=== PATIENT | male | born 1975 | race Two or more races ===

== ENCOUNTER 2017-01-26 10:27 | Emergency (ER) | payer BC ==
[~2017-01-26] VITALS: Ht 193 cm; Wt 122.5 kg
[2017-01-26 11:57] LABS: Basophils # (auto) 0 uL; Basophils % (auto) 0.4 % (0.0-2.0); CONDITION Y; DEFINITIVE SEE PRINTOUT; Eosinophils # (auto) 0.1 uL; Hemoglobin 15.6 g/dL (13.5-17.5); Lymphocytes # (auto) 1.7 uL; Lymphocytes % (auto) 24.8 % (10.0-50.0); Mean Corpuscular Hemoglobin 34.1 pg (28.0-32.0); Mean Corpuscular Hgb Conc. 33.3 g/dL (32.0-36.0); Mean Corpuscular Volume 102.5 fL (80.0-100.0); Mean Platelet Volume 9.9 fL (7.4-10.4); Monocytes # (auto) 0.7 uL; Monocytes % (auto) 9.5 % (0.0-12.0); Neutrophils # (auto) 4.4 uL; Neutrophils % (auto) 64.3 % (37.0-80.0); Platelet Count (auto) 302 10^3/uL (140-450); Red Cell Distribution Width 13.9 % (11.6-16.0); SUSPECT SEE PRINTOUT; White Blood Cell 6.9 10^3/uL (4.4-10.8)
[2017-01-26 12:13] LABS: INR 1.18 (0.9-1.15); Partial Thromboplastin Time 26.8 sec (22.64-33.71); Prothrombin Time 12.9 sec (9.37-12.3)
[2017-01-26 12:22] LABS: Albumin 3.9 g/dL (3.4-5.0); BUN/Creatinine Ratio 9.5; Bilirubin, Total 1.7 mg/dL (0.2-1.0); Calcium 9.1 mg/dL (8.5-10.1); Potassium 4.3 mmol/L (3.5-5.1); Total Protein 7.1 g/dL (6.4-8.2)
[2017-01-26] MEDS ORDERED: SODIUM CHLORIDE 0.9% 1,000 ML IV ONE (12:24)
[2017-01-26] MEDS ORDERED: LORazepam 2MG/ML-1ML VIAL IV ONE (12:30)
[2017-01-26] MEDS ORDERED: cloNIDine HCL 0.1 MG TAB PO ONE (12:30)
[2017-01-26 13:39] LABS: Urine RBC None Seen /hpf (0 - 3)
[2017-01-26 13:59] VITALS: BP 130/96
[2017-01-26 14:03] LABS: Urine Bilirubin Negative (Negative); Urine Blood Negative /uL (Negative); Urine Color Yellow (Yellow); Urine Glucose Normal (Normal); Urine Hyaline Cast FEW /lpf (0 - 2); Urine Ketone Negative (Negative); Urine Mucus FEW (None Seen); Urine Nitrite Negative (Negative); Urine pH 5.5 (5.0-8.0)
== END 2017-01-26 15:33 | disposition home or self-care (01) ==
LOC: ER 10:27
DX: R18.8 Other ascites (principal); I10 Essential (primary) hypertension; F17.210 Nicotine dependence, cigarettes, uncomplicated; R42 Dizziness and giddiness; K59.00 Constipation, unspecified
CPT/HCPCS: 36415; 70450; 74176; 80053; 81001; 83690; 84443; 85025; 85610; 85730; 96361; 96374; 99285; J2060; J7030

== ENCOUNTER 2017-01-30 13:23 | Inpatient (IN) | payer BC ==
[~2017-01-30] VITALS: Ht 193 cm; Wt 122.9 kg
[2017-01-30 14:19] LABS: Basophils # (auto) 0 uL; Basophils % (auto) 0.8 % (0.0-2.0); Eosinophils # (auto) 0.1 uL; Eosinophils % (auto) 1.1 % (0.0-7.0); Hematocrit 48.7 % (41.0-53.0); Hemoglobin 16.3 g/dL (13.5-17.5); Lymphocytes # (auto) 1.6 uL; Lymphocytes % (auto) 26.1 % (10.0-50.0); Mean Corpuscular Hemoglobin 34.7 pg (28.0-32.0); Mean Corpuscular Hgb Conc. 33.4 g/dL (32.0-36.0); Mean Corpuscular Volume 103.8 fL (80.0-100.0); Mean Platelet Volume 9.5 fL (7.4-10.4); Monocytes # (auto) 0.6 uL; Neutrophils # (auto) 3.9 uL; Nucleated Red Blood Cells % 0.1 %; Platelet Count (auto) 247 10^3/uL (140-450); Red Cell Distribution Width 13.6 % (11.6-16.0); White Blood Cell 6.3 10^3/uL (4.4-10.8)
[2017-01-30 14:35] LABS: Albumin 3.8 g/dL (3.4-5.0); BUN/Creatinine Ratio 9.3; Calcium 8.8 mg/dL (8.5-10.1); Magnesium 2.2 mg/dL (1.6-2.6); Potassium 4.2 mmol/L (3.5-5.1)
[2017-01-30 14:40] LABS: Bilirubin, Total 1.8 mg/dL (0.2-1.0); Total Protein 7.1 g/dL (6.4-8.2)
[2017-01-30 16:05] LABS: Urine RBC None Seen /hpf (0 - 3)
[2017-01-30 16:23] LABS: Urine Bilirubin Negative (Negative); Urine Blood Negative /uL (Negative); Urine Color Yellow (Yellow); Urine Glucose Normal (Normal); Urine Hyaline Cast MOD /lpf (0 - 2); Urine Ketone Negative (Negative); Urine Mucus FEW (None Seen); Urine Nitrite Negative (Negative); Urine Squamous Epithelial Cell FEW /hpf (<5); Urine Urobilinogen Normal (Negative); Urine pH 5.5 (5.0-8.0)
[2017-01-30 16:50] LABS: B-Type Natriuretic Peptide 1230.38 pg/mL (0-100)
[2017-01-30 16:58] LABS: Temperature: 23.3 C (20.0-25.0)
[2017-01-30] MEDS ORDERED: PANTOPRAZOLE 40 MG TAB PO ONE (18:45)
[2017-01-30] MEDS ORDERED: ENALAPRIL MALEATE 2.5 MG TAB PO ONE (18:45)
[2017-01-30] MEDS ORDERED: MORPHINE SULFATE 4 MG/ML SYRG IV PRN (18:45)
[2017-01-30] MEDS ORDERED: LACTULOSE 20Gm/30ML SOLN PO PRN (18:45)
[2017-01-30] MEDS ORDERED: ACETAMINOPHEN 500 MG TAB PO PRN (18:45)
[2017-01-30] MEDS ORDERED: POTASSIUM CHL 20 Meq TABLET PO ONE (18:45)
[2017-01-30] MEDS ORDERED: LORazepam 0.5 MG TAB PO PRN (18:45)
[2017-01-30] MEDS ORDERED: chlordiazePOXIDE HCL 25 MG CAP PO PRN (18:45)
[2017-01-30] MEDS ORDERED: TEMAZEPAM 15 MG CAP PO PRN (18:45)
[2017-01-30] MEDS ORDERED: PROMETHAZINE HCL 25 MG/ML 1ML IV PRN (18:45)
[2017-01-30] MEDS ORDERED: FUROSEMIDE 40 MG/4 ML VIAL IV ONE (18:45)
[2017-01-30] MEDS ORDERED: MORPHINE SULF INJ 2 MG/ML SYRINGE 1ML IV PRN (18:45)
[2017-01-30] MEDS ORDERED: ASPirin 81 mg TAB PO ONE (18:45)
[2017-01-30] MEDS ORDERED: NITROGLYCERIN 0.4 MG SL TAB SL PRN (18:45)
[2017-01-30] MEDS ORDERED: THIAMINE HCL 100 MG/ML 2ML VIAL IV ONE (18:45)
[2017-01-30] MEDS ORDERED: HYDROcodone-ACET 5/325MG TAB PO PRN (18:45)
[2017-01-30] MEDS: FUROSEMIDE 40 MG/4 ML VIAL IV SCH (19:10)
[2017-01-30] MEDS: CARVEDILOL 3.125 MG TAB PO SCH ×2 (19:11→22:22)
[2017-01-30] MEDS: ENOXAPARIN SOD 120 MG/0.8 ML SYRINGE SC SCH (19:13)
[2017-01-30 19:29] LABS: INR 1.17 (0.9-1.15); Prothrombin Time 12.8 sec (9.37-12.3)
[2017-01-30 20:05] VITALS: BP 121/76
[2017-01-30 22:00] VITALS: BP 121/76
[2017-01-30] MEDS: ATORVASTATIN 20 MG TAB PO SCH (22:22)
[2017-01-30] MEDS: chlordiazePOXIDE HCL 5 MG CAP PO SCH (23:42)
[2017-01-31] VITALS (14 sets, daily range): BP systolic 48–133; BP diastolic 31–92
[2017-01-31] MEDS: chlordiazePOXIDE HCL 5 MG CAP PO SCH ×3 (05:42→22:29)
[2017-01-31] MEDS: ENOXAPARIN SOD 120 MG/0.8 ML SYRINGE SC SCH ×2 (05:43→18:18)
[2017-01-31 05:51] LABS: Cholesterol 106 mg/dL (< 200); HDL Cholesterol 18 mg/dL (40-59); LDL Cholesterol 81 mg/dL (< 100); Triglycerides 100 mg/dL (< 150)
[2017-01-31 06:18] LABS: Temperature: 21.8 C (20.0-25.0)
[2017-01-31 09:01] LABS: INR 1.17 (0.9-1.15); Partial Thromboplastin Time 34.3 sec (22.64-33.71); Prothrombin Time 12.8 sec (9.37-12.3)
[2017-01-31] MEDS: FUROSEMIDE 40 MG/4 ML VIAL IV SCH (10:30)
[2017-01-31] MEDS: THIAMINE HCL 100 MG/ML 2ML VIAL IV SCH (10:30)
[2017-01-31] MEDS: ASPirin 81 mg TAB PO SCH (10:30)
[2017-01-31] MEDS: CARVEDILOL 3.125 MG TAB PO SCH ×2 (10:31→22:28)
[2017-01-31] MEDS: POTASSIUM CHL 20 Meq TABLET PO SCH (10:31)
[2017-01-31] MEDS: PANTOPRAZOLE 40 MG TAB PO SCH (10:32)
[2017-01-31] MEDS: ENALAPRIL MALEATE 2.5 MG TAB PO SCH (10:32)
[2017-01-31] MEDS ORDERED: AMIODARONE HCL 900 MG in DEXTROSE 500 ML IV SCH ×2 (15:28→21:28)
[2017-01-31] MEDS ORDERED: AMIODARONE HCL 150 MG in D5W 5% 100 ML IV ONE (15:30)
[2017-01-31] MEDS ORDERED: WARFARIN SODIUM 2.5 MG TAB PO ONE (17:00)
[2017-01-31] MEDS ORDERED: DOPamine 1600MCG/ML 0 ML IV ONE (19:53)
[2017-01-31] MEDS ORDERED: DOPamine 1600MCG/ML 250 ML IV ONE (20:04)
[2017-01-31] MEDS: DOPamine 1600MCG/ML 250 ML IV SCH (20:30)
[2017-01-31] MEDS: ATORVASTATIN 20 MG TAB PO SCH (22:29)
[2017-02-01] VITALS: BP 109/76
[2017-02-01] MEDS ORDERED: SODIUM CHLORIDE 0.9% 500 ML IV ONE (02:15)
[2017-02-01 04:00] VITALS: BP 126/65
[2017-02-01] MEDS: DOPamine 1600MCG/ML 250 ML IV SCH (04:55)
[2017-02-01 05:33] LABS: INR 1.25 (0.9-1.15); Partial Thromboplastin Time 35.7 sec (22.64-33.71); Prothrombin Time 13.7 sec (9.37-12.3)
[2017-02-01] MEDS: ENOXAPARIN SOD 120 MG/0.8 ML SYRINGE SC SCH ×2 (06:00→19:13)
[2017-02-01] MEDS: chlordiazePOXIDE HCL 5 MG CAP PO SCH ×4 (06:00→19:13)
[2017-02-01] MEDS: POTASSIUM CHL 20 Meq TABLET PO SCH (10:00)
[2017-02-01] MEDS: PANTOPRAZOLE 40 MG TAB PO SCH (10:00)
[2017-02-01] MEDS: ASPirin 81 mg TAB PO SCH (10:00)
[2017-02-01] MEDS: ENALAPRIL MALEATE 2.5 MG TAB PO SCH (10:00)
[2017-02-01] MEDS ORDERED: AMIODARONE HCL 200 MG TAB PO SCH (10:00)
[2017-02-01] MEDS: CARVEDILOL 3.125 MG TAB PO SCH ×2 (10:00→21:28)
[2017-02-01 11:33] LABS: Albumin 3.5 g/dL (3.4-5.0); BUN/Creatinine Ratio 13.4; Bilirubin, Total 1.6 mg/dL (0.2-1.0); Calcium 8.7 mg/dL (8.5-10.1); Magnesium 2.5 mg/dL (1.6-2.6); Potassium 4.8 mmol/L (3.5-5.1); Total Protein 6.5 g/dL (6.4-8.2)
[2017-02-01 12:00] VITALS: BP 118/86
[2017-02-01] MEDS: FUROSEMIDE 40 MG TAB PO SCH (12:15)
[2017-02-01] MEDS: THIAMINE HCL 100 MG/ML 2ML VIAL IV SCH (13:00)
[2017-02-01 16:00] VITALS: BP 133/84
[2017-02-01] MEDS ORDERED: WARFARIN SODIUM 5 MG TAB PO ONE (17:00)
[2017-02-01 20:01] VITALS: BP 146/84
[2017-02-01] MEDS: DIGOXIN 0.125 MG TAB PO SCH (21:28)
[2017-02-01] MEDS: ATORVASTATIN 20 MG TAB PO SCH (21:29)
[2017-02-02] VITALS: BP 141/88
[2017-02-02 04:00] VITALS: BP 143/85
[2017-02-02 05:13] LABS: Basophils # (auto) 0 uL; Basophils % (auto) 0.7 % (0.0-2.0); Eosinophils # (auto) 0.1 uL; Eosinophils % (auto) 1.5 % (0.0-7.0); Hematocrit 44.9 % (41.0-53.0); Hemoglobin 14.9 g/dL (13.5-17.5); Lymphocytes # (auto) 2.1 uL; Lymphocytes % (auto) 35.7 % (10.0-50.0); Mean Corpuscular Hemoglobin 34.3 pg (28.0-32.0); Mean Corpuscular Hgb Conc. 33.2 g/dL (32.0-36.0); Mean Corpuscular Volume 103.3 fL (80.0-100.0); Mean Platelet Volume 10.1 fL (7.4-10.4); Monocytes # (auto) 0.8 uL; Monocytes % (auto) 13.8 % (0.0-12.0); Neutrophils # (auto) 2.8 uL; Neutrophils % (auto) 48.3 % (37.0-80.0); Nucleated Red Blood Cells % 0.1 %; Platelet Count (auto) 199 10^3/uL (140-450); Red Cell Distribution Width 13.5 % (11.6-16.0); White Blood Cell 5.9 10^3/uL (4.4-10.8)
[2017-02-02 05:27] LABS: INR 1.37 (0.9-1.15); Partial Thromboplastin Time 34.3 sec (22.64-33.71)
[2017-02-02 05:35] LABS: Albumin 3.4 g/dL (3.4-5.0); Calcium 8.6 mg/dL (8.5-10.1)
[2017-02-02 05:38] LABS: BUN/Creatinine Ratio 16.4
[2017-02-02 05:40] LABS: Bilirubin, Total 1.1 mg/dL (0.2-1.0); Total Protein 6.3 g/dL (6.4-8.2)
[2017-02-02] MEDS: chlordiazePOXIDE HCL 5 MG CAP PO SCH ×5 (06:00→23:33)
[2017-02-02] MEDS: ENOXAPARIN SOD 120 MG/0.8 ML SYRINGE SC SCH (06:00)
[2017-02-02 07:30] VITALS: BP 121/83
[2017-02-02] MEDS ORDERED: IOHEXOL 350 MG/ML 100ML IJ ONE (08:06)
[2017-02-02] MEDS: CARVEDILOL 3.125 MG TAB PO SCH ×2 (10:00→22:24)
[2017-02-02] MEDS: ASPirin 81 mg TAB PO SCH (10:00)
[2017-02-02] MEDS: POTASSIUM CHL 20 Meq TABLET PO SCH (10:00)
[2017-02-02] MEDS: ENALAPRIL MALEATE 2.5 MG TAB PO SCH (10:00)
[2017-02-02] MEDS: PANTOPRAZOLE 40 MG TAB PO SCH (10:00)
[2017-02-02] MEDS: DIGOXIN 0.125 MG TAB PO SCH (10:00)
[2017-02-02] MEDS: FUROSEMIDE 40 MG TAB PO SCH (10:00)
[2017-02-02] MEDS ORDERED: PANT40T PO (11:05)
[2017-02-02] MEDS ORDERED: ATOR20TA50 PO (11:05)
[2017-02-02] MEDS ORDERED: ASPI81CH43 PO (11:05)
[2017-02-02] MEDS ORDERED: CAR3125T PO (11:05)
[2017-02-02] MEDS ORDERED: POTA20TA53 PO (11:05)
[2017-02-02] MEDS ORDERED: APIX5TAB PO (11:05)
[2017-02-02] MEDS ORDERED: ENA2.5T PO (11:05)
[2017-02-02] MEDS ORDERED: FURO40TA4 PO (11:05)
[2017-02-02] MEDS ORDERED: DIG0125T PO (11:05)
[2017-02-02 12:00] VITALS: BP 136/90
[2017-02-02] MEDS: APIXABAN 5 MG TAB PO SCH (12:56)
[2017-02-02] MEDS: THIAMINE HCL 100 MG/ML 2ML VIAL IV SCH (14:06)
[2017-02-02 17:00] VITALS: BP 136/85
[2017-02-02] MEDS ORDERED: WARFARIN SODIUM 10 MG TAB PO ONE (17:00)
[2017-02-02 19:45] VITALS: BP 123/74
[2017-02-02] MEDS: ATORVASTATIN 20 MG TAB PO SCH (22:18)
[2017-02-03] VITALS (8 sets, daily range): BP systolic 101–134; BP diastolic 54–86
[2017-02-03] MEDS: chlordiazePOXIDE HCL 5 MG CAP PO SCH ×4 (05:55→23:33)
[2017-02-03] MEDS: THIAMINE HCL 100 MG/ML 2ML VIAL IV SCH (09:57)
[2017-02-03] MEDS: ASPirin 81 mg TAB PO SCH (09:58)
[2017-02-03] MEDS: FUROSEMIDE 40 MG TAB PO SCH (10:00)
[2017-02-03] MEDS: APIXABAN 5 MG TAB PO SCH ×2 (10:00→21:29)
[2017-02-03] MEDS: ENALAPRIL MALEATE 2.5 MG TAB PO SCH (10:00)
[2017-02-03] MEDS: POTASSIUM CHL 20 Meq TABLET PO SCH (10:01)
[2017-02-03] MEDS: DIGOXIN 0.125 MG TAB PO SCH (10:01)
[2017-02-03] MEDS: PANTOPRAZOLE 40 MG TAB PO SCH (10:02)
[2017-02-03] MEDS: CARVEDILOL 3.125 MG TAB PO SCH ×2 (10:03→21:30)
[2017-02-03] MEDS: ATORVASTATIN 20 MG TAB PO SCH (21:29)
[2017-02-04 04:54] VITALS: BP 123/77
[2017-02-04] MEDS: chlordiazePOXIDE HCL 5 MG CAP PO SCH ×2 (05:41→12:07)
[2017-02-04 08:51] VITALS: BP 134/90
[2017-02-04] MEDS: APIXABAN 5 MG TAB PO SCH (09:30)
[2017-02-04] MEDS: THIAMINE HCL 100 MG/ML 2ML VIAL IV SCH (09:30)
[2017-02-04] MEDS: DIGOXIN 0.125 MG TAB PO SCH (09:31)
[2017-02-04] MEDS: ASPirin 81 mg TAB PO SCH (09:32)
[2017-02-04] MEDS: CARVEDILOL 3.125 MG TAB PO SCH (09:32)
[2017-02-04] MEDS: ENALAPRIL MALEATE 2.5 MG TAB PO SCH (09:32)
[2017-02-04] MEDS: PANTOPRAZOLE 40 MG TAB PO SCH (09:32)
[2017-02-04] MEDS: FUROSEMIDE 40 MG TAB PO SCH (09:33)
[2017-02-04] MEDS: POTASSIUM CHL 20 Meq TABLET PO SCH (09:33)
[2017-02-04 13:40] VITALS: BP 115/82
[2017-02-04 14:38] VITALS: BP 115/80
== END 2017-02-04 17:45 | disposition home or self-care (01) | DRG 308 ==
LOC: ER 13:45 → TELE 13:46 → TELE-WESTW 20:05 → DOU IN ICU 01-31 16:02 → TELE-CENTR 02-03 20:52
PROVIDERS: ADMIT Internal Medicine; ATTEND Internal Medicine
DX: I48.1 Persistent atrial fibrillation (principal); I50.43 Acute on chronic combined systolic (congestive) and diastolic (congestive) heart failure; I49.5 Sick sinus syndrome; I42.6 Alcoholic cardiomyopathy; I95.9 Hypotension, unspecified; E66.01 Morbid (severe) obesity due to excess calories; K70.31 Alcoholic cirrhosis of liver with ascites; I48.92 Unspecified atrial flutter; F10.10 Alcohol abuse, uncomplicated; F12.10 Cannabis abuse, uncomplicated; F17.210 Nicotine dependence, cigarettes, uncomplicated; N18.2 Chronic kidney disease, stage 2 (mild); F41.9 Anxiety disorder, unspecified; G47.00 Insomnia, unspecified; Z83.3 Family history of diabetes mellitus; Z82.49 Family history of ischemic heart disease and other diseases of the circulatory system; Z68.33 Body mass index [BMI] 33.0-33.9, adult; Z71.41 Alcohol abuse counseling and surveillance of alcoholic; Z71.51 Drug abuse counseling and surveillance of drug abuser; Z71.3 Dietary counseling and surveillance
CPT/HCPCS: 36415; 71010; 71275; 78452; 80053; 80061; 80307; 81001; 82550; 83735; 83880; 84439; 84443; 84481; 84484; 85025; 85379; 85610; 85652; 85730; 86141; 87081; 93005; 93017; 93306; 93970; 96374; 96375; J7060

== ENCOUNTER → 2017-02-12 | Outpatient (CLI) | payer BC ==
[~2017-02-12] MED LIST: APIX5TAB PO; ASPI81CH43 PO; ATOR20TA50 PO; CAR3125T PO; DIG0125T PO; ENA2.5T PO; FURO40TA4 PO; PANT40T PO; POTA20TA53 PO
[2017-02-12 17:13] LABS: BUN/Creatinine Ratio 10.7; Calcium 9.4 mg/dL (8.5-10.1); Potassium 4.2 mmol/L (3.5-5.1)
[2017-02-12 17:15] LABS: Bilirubin, Total 0.8 mg/dL (0.2-1.0); Total Protein 7.7 g/dL (6.4-8.2)
== END | disposition home or self-care (01) ==
LOC: LAB 16:13
PROVIDERS: ATTEND Internal Medicine
DX: R79.89 Other specified abnormal findings of blood chemistry (principal)
CPT/HCPCS: 36415; 80053; 80162

== ENCOUNTER → 2017-04-05 | Outpatient (CLI) | payer BC ==
[2017-04-06 05:06] LABS: Thyroid Peroxidase (TPO) Ab 18 IU/mL (0-34)
[2017-04-06 18:10] LABS: Sjogren's Anti-SS-A Antibody <0.2 AI (0.0-0.9)
[2017-04-07 11:07] LABS: Anti-intermyofibrillar Ab Negative (Neg:<1:20); Anti-sarcolemma Antibody Negative (Neg:<1:20)
== END | disposition home or self-care (01) ==
LOC: LAB 10:57
PROVIDERS: ATTEND Internal Medicine
DX: M25.50 Pain in unspecified joint (principal)
CPT/HCPCS: 36415; 84153; 84550; 86225; 86235